=== PATIENT | male | born 1985 | race Caucasian/White ===

== ENCOUNTER 2017-02-20 13:35 | Emergency (ER) | payer MEDICAID, OTHER ==
[2017-02-20 13:51] VITALS: BP 145/75; PULSE 59; RESP 18; TEMP 97.9; O2SAT 96
[2017-02-20] MEDS ORDERED: FLUORESCEIN SODIUM 1 MG STRIP OP ONE (16:20)
[2017-02-20] MEDS ORDERED: PROPARACAINE 0.5% 15 ML OPHT DROP OP ONE (16:20)
--- NOTE | 2017-02-20 16:33 | EDPHY ---
H & P Time Seen by Provider: 02/20/17 16:18 HPI/ROS: CHIEF COMPLAINT: "I think I have pinkeye" HISTORY OF PRESENT ILLNESS: 31-year-old male with no contact lens use history, wears glasses, complaining 3 days of left eye discharge, crusting, injection, itching. No pain. no photophobia. No exposure to high speed projectiles. No pain with extraocular movements. No fever no chills. No facial swelling or asymmetry PRIMARY CARE PROVIDER:Davian PHYSICAL EXAM (Prior to examination, patient consented to physical exam, hands were washed and my usual and customary physical exam procedures followed) 1) GENERAL: Well-developed, well-nourished, alert and oriented. Appears to be in no acute distress. 2) HEAD: Normocephalic 3) ENT: No facial swelling, erythema, asymmetry 4) LUNGS: Breathing comfortably. 5) OCULAR EXAM: Visual Acuity: OS, 20/50, OD 20/20, OU 20/40 Pupils:equal round and reactive to light EOMI. No photophobia to affected or unaffected eye. Lids: no edema or swelling, upper and lower lids were everted and no foreign bodies were visualized, no areas of increased fluorescein uptake. Skin: no proptosis, no periorbital erythema or swelling, no vesicles, no pain with extraocular movements. Conjunctivae: Left eye: Injected with discharge. No proptosis. No periorbital erythema, induration, lesions. No pain with extraocular movements. No periorbital crepitus. negative Stacy test. Right eye: No injection, no discharge, no pain with extraocular movements Cornea: exam with fluorescein showsno areas of increased uptake. No signs of ulceration or abrasion. Anterior chamber:[normal, no hyphema or hypopyon Smoking Status: Never smoked Constitutional: Initial Vital Signs Temperature (C) 36.6 C 02/20/17 13:49 Heart Rate 59 L 02/20/17 13:49 Respiratory Rate 18 02/20/17 13:49 Blood Pressure 145/75 H 02/20/17 13:49 O2 Sat (%) 96 02/20/17 13:49 O2 Delivery Mode Room Air Allergies/Adverse Reactions: Penicillins Allergy (Verified 02/20/17 13:47) Home Medications: Medication Instructions Recorded Ofloxacin 0.3% [Ocuflox 0.3%] 2 drops EACHEYE QID #1 opht.btl 02/20/17 MDM/Departure - [facility] ED Course/Re-evaluation: Doubt periorbital or orbital cellulitis. Doubt acute closed angle glaucoma. Doubt iritis. High clinical suspicion for conjunctivitis. Plan will be discharged with Ocuflox, follow up with Ophthalmology tomorrow (Tuesday). - Depart Disposition: Home, Routine, Self-Care Clinical Impression: Conjunctivitis, left eye Qualifiers: Conjunctivitis type: acute Acute conjunctivitis type: bacterial Qualified Code( s): H10.32 - Unspecified acute conjunctivitis, left eye Condition: Good Instructions: Conjunctivitis (ED) Additional Instructions: Return to the ER with new or worsening symptoms. Prescriptions: Ofloxacin 0.3% [Ocuflox 0.3%] 2 drops EACHEYE QID #1 opht.btl Referrals: Otto Rose [Medical Doctor] - 1 day without fail (Dr. Otto Rose is an grounds crew supervisor. You may follow up with him or your [place] grounds crew supervisor tomorrow.)
== END 2017-02-20 16:56 | disposition home or self-care (01) ==
DX: H10.32 Unspecified acute conjunctivitis, left eye (principal)